=== PATIENT | male | born 1955 | race Caucasian/White ===

== ENCOUNTER → 2019-08-11 | Outpatient (CLI) | payer MEDICARE ==
[2019-08-11 17:46] LABS: CALCIUM 8.8 mg/dL (8.4-10.2); CREATININE, serum 0.85 (0.66-1.25); POTASSIUM 4.4 mmol/L (3.4-5.0)
== END ==
LOC: ZCOL.LAB 16:49
PROVIDERS: Family Medicine
DX: I10 Essential (primary) hypertension (principal)

== ENCOUNTER 2020-04-06 06:35 | Day surgery (SDC) | payer MEDICARE ==
[~2020-04-06] VITALS: Ht 172.7 cm; Wt 74.7 kg
[2020-04-06] VITALS (11 sets, daily range): BP systolic 122–165; BP diastolic 59–95; PULSE 48–77; TEMP 97–98.2
[~2020-04-06 06:35] MED LIST: ATROVENT INHALE14 GM IH; EMGEL 2% TOP; HYZAAR 12.5 MG-1 TAB PO; NASACORT OTC NS; TOPROL XL 25MG25 MG PO
--- NOTE | 2020-04-06 13:21 | NUR ---
PATIENT TO ROOM 330 PER BED WITH REPORT FROM [facility] PAC[facility] @3040. PT IS A/O X3 WITH CLEAR LUNGS, BOWEL SOUNDS PRESENT. PEDAL PULSES PALPABLE. DRESSING TO LEFT KNEE CDI WITH OCCLUSIVE JOSSELYN WRAP OVER INCISION. IV TO PUMP, SCDS BILATERALLY. ICE TO AFFECTED KNEE.
--- NOTE | 2020-04-06 13:35 | NUR ---
PT EATING LUNCH TRAY DENIES NAUSEA. NO REPORT OF PAIN AT THIS TIME.
--- NOTE | 2020-04-06 15:18 | NUR ---
Automotive Instructor met with patient to discuss discharge planning. Patient lives in [place] with his , Araseli (ph#[phone]). Patient states his , Araseli is a caregiver for their adult son who lives independently. Patient sees Dr. Cyr for primary care and obtains medications from [facility] with no difficulties. Patient has a walker that was loaned to him and no other DME. Patient reports independence with ADLS and plans to return home at discharge. Patient does not have advance directives and was not interested in setting them up at this time. SW will continue to follow as needed.
--- NOTE | 2020-04-06 18:14 | NUR ---
STRAIGHT CATH USING STERILE TECHNIQUE. REMOVED 775 MLS CLEAR YELLOW URINE. PT TOLERATED WELL. PREFORMED [facility]TE [facility] POST PROCEEDURE.
--- NOTE | 2020-04-06 19:02 | NUR ---
REPORT TO [facility].
--- NOTE | 2020-04-06 20:00 | NUR ---
At time of assessment, patient is resting in bed. He is alert and oriented, heart sounds normal/regular, lungs clear, no edema present. Patient has pain in his knee but only wishes to take Tylenol at this time. He ambulates with walker/gait belt and minimal weight bearing on left leg. He tries to void with no success. Will bladder scan at 2200, per doctor's orders.
--- NOTE | 2020-04-06 23:15 | NUR ---
Bladder scan complete - 874 ml of urine in bladder. Patient has been up to bathroom and attempted to void with no success. Lutz inserted at this time, per additional nursing order. 1050 ml of yellow, clear urine drained at time of insertion.
[2020-04-07] VITALS (7 sets, daily range): BP systolic 130–178; BP diastolic 76–91; PULSE 59–103; TEMP 97.5–98.7
[2020-04-07 06:35] LABS: HEMOGLOBIN 11.6 g/dl (13.5-18.0)
[2020-04-07 06:43] LABS: HEMATOCRIT 34.7 % (42.0-52.0)
--- NOTE | 2020-04-07 08:45 | NUR ---
Sitting up in bed watching TV. Rates pain to left knee 8/10, describes as sore. Dressing to left knee CDI. Will change to Aquacel dressing at this time. IV fluids discontinued. Lutz draining clear yellow urine. Patient denies additional needs.
--- NOTE | 2020-04-07 11:24 | NUR ---
Sitting up in chair. Rates pain 11/30. Nelda dunn'mirella at this time. Patient tolerates without difficulty and educated on urinating in urinal. Patient requests to get back in bed. Patient assisted with walker and stand by assist back to bed. Gait steady. Assisted into comfortable position. Denies further needs at this time.
--- NOTE | 2020-04-07 13:11 | NUR ---
Rating pain 8/10 in left knee. Administer [place] as prescribed. Patient still not able to void at this time, does not feel that he needs to. Denies any additional needs at this time.
--- NOTE | 2020-04-07 14:19 | NUR ---
Working with OT in the room. Rates pain 05/02, says that he has been doing therapy a lot this afternoon since getting the pain pill so it has not really helped. Has not been able to void as of this time, says he has not thought about peeing. Explain that we will try when he is done with OT and if no urine we will scan his bladder.
--- NOTE | 2020-04-07 14:59 | NUR ---
Patient ambulated into bathroom with stand by assist and use of walker. Gait steady. Stands at toilet and is able to void 50mL clear yellow urine. Patient explains that he does not feel that his bladder is full. Patient returns to bed. Bladder scan performed and 219mL noted in bladder. Encouraged patient to keep drinking fluids and we will see if he is able to void more here in a little bit. Patient verbalizes understanding and denies further needs.
--- NOTE | 2020-04-07 16:02 | NUR ---
Lying in bed with eyes open. BP elevated per machine. Patient denies any headache, vision changes, or chest pains. Will evaluate with manual cuff. Patient does not feel the need to void at this time. Will drink more fluids and he will try to urinate in a little bit.
--- NOTE | 2020-04-07 16:11 | NUR ---
Manual BP 158/88. IV site in right forearm noted to have redness, no swelling noted. Patient says that it is a little sore. IV dc'd at this time. Encouraged patient to keep drinking fluids.
--- NOTE | 2020-04-07 18:06 | NUR ---
Lying in bed with eyes closed. Opens eyes when name called out. Patient did not like the dinner that was served. [place] tray offered and patient accepts. Asked patient if he has been able to urinate and he says no and that he does not feel like he needs to at this time. Bladder scan performed, approx 425mL in bladder. Patient says that he would like to give it a little bit longer because if he keeps getting pressure to urinate he will not go and he knows that it will happen. Patient sitting up in bed eating sandwich tray. Explain that if he is not able to go later this evening the restaurant shift supervisor nurse will rescan his bladder and then if he is not able to void still contact provider for possible cath. Patient says that he understands. Denies additional needs at this time.
--- NOTE | 2020-04-07 20:00 | NUR ---
PATIENT WITH DECREASED ROM AND STRENGTH TO LLE D/T L KNEE SURGERY. DENIES NUMBNESS/TINGLING TO EXTREMITIES. DENIES CHEST PAIN/SHORTNESS OF BREATHE. ENCOURAGED PATIENT TO KEEP L KNEE STRAIGHT MUCH POSSIBLE, IF ON PILLOWS TO HAVE NO PILLOWS UNDER L KNEE, WITH PATIENT VERBALIZING UNDERSTANDING. ENCOURAGED PATIENT TO C&DB OR USE IS INSTRUCTED.
--- NOTE | 2020-04-08 02:30 | NUR ---
PATIENT SLEEPING, DOES NOT AWAKEN WHEN DOOR TO ROOM IS OPENED BY STAFF. BREATHING OBSERVED EVEN AND NONLABORED.
[2020-04-08 05:16] VITALS: BP 162/82; PULSE 81; TEMP 98.1
[2020-04-08] MEDS ORDERED: ULTRAM 50MG TAB50 MG PO (06:45)
[2020-04-08] MEDS ORDERED: ASPI325T6 PO (06:45)
[2020-04-08] MEDS ORDERED: NORCO 325 MG-7.1 TAB PO (06:45)
[2020-04-08] MEDS ORDERED: SENOKOT S 50 MG1 TAB PO (06:46)
--- NOTE | 2020-04-08 07:33 | NUR ---
PATIENT UP INDEPENDENTLY IN ROOM DURING CHANGE OF SHIFT REPORT GIVEN TO DAY SHIFT NURSE, RENAE. SEE eMAR FOR PAIN MED GIVEN.
--- NOTE | 2020-04-08 07:48 | NUR ---
Sitting up in bed watching TV and eating breakfast. Rates pain in left knee 4/10 and describes as an ache, pain does increase with movement. Dressing to left knee CDI. Patient is aware that he will be going home this afternoon after his PT session. Denies needs at this time.
[2020-04-08 07:53] VITALS: BP 135/66; PULSE 95; TEMP 97.8
--- NOTE | 2020-04-08 10:10 | NUR ---
Reviewed discharge instructions with the patient. Denies questions. Patient signs discharge paperwork. Patient home meds obtained from pharmacy and given back to the patient. Patient will inform that he will be ready for sweet pickled fruit maker at 1500 today. Denies additional needs at this time.
--- NOTE | 2020-04-08 10:54 | NUR ---
Lying in bed with eyes open. Having minimal pain in left knee. Patient denies needs for pain medication at this time. Denies any additional needs.
[2020-04-08 12:11] VITALS: BP 143/77; PULSE 81; TEMP 98.4
--- NOTE | 2020-04-08 15:05 | NUR ---
Patient here to pick patient up. Patient and all personal belongings taken out to POV by staff.
== END 2020-04-08 15:05 | disposition home or self-care (01) ==
LOC: JCC 06:35 → SDCO 06:35 → EDSTATUS 10:30 → JCC 10:30 → SDCO 04-08 15:05
PROVIDERS: Orthopaedic Surgery
DX: M17.12 Unilateral primary osteoarthritis, left knee (principal); I10 Essential (primary) hypertension; K21.9 Gastro-esophageal reflux disease without esophagitis; F17.220 Nicotine dependence, chewing tobacco, uncomplicated
CPT/HCPCS: A9284; C1776; J0690; J2250; J2274; J2704; J7030; J7120

== ENCOUNTER 2020-05-18 14:00 | Outpatient (RCR) | payer MEDICARE ==
[~2020-05-18 14:00] MED LIST changes: +ASPI325T6 PO; +NORCO 325 MG-7.1 TAB PO; +SENOKOT S 50 MG1 TAB PO; +ULTRAM 50MG TAB50 MG PO
== END 2020-05-24 14:51 | disposition home or self-care (01) ==
LOC: WSPT 14:00
DX: Z96.652 Presence of left artificial knee joint (principal)